=== PATIENT | female | born 1975 | race Hispanic/Latino ===

== ENCOUNTER 2018-06-27 17:27 | Emergency (ER) | payer SELFPAY ==
[2018-06-27] MEDS ORDERED: SODIUM CHLORIDE 0.9% 1000ML 2,000 ML IV ONE (19:16)
[2018-06-27 19:17] LABS: BASOPHILS % (AUTO) 0.3 % (0.0-5.0); EOSINOPHILS % (AUTO) 0.3 % (0.0-8.0); HEMATOCRIT 38.7 % (36-48); LYMPHOCYTES % (AUTO) 11.1 % (21.0-51.0); MEAN CORPUSCULAR HEMOGLOBIN 31.1 pg (27.0-33.0); MEAN CORPUSCULAR HGB CONC 34.2 g/dL (32.0-36.0); MONOCYTES % (AUTO) 8.2 % (3.0-13.0); NEUTROPHILS % (AUTO) 80.1 % (40.0-77.0); PLATELET COUNT (AUTO) 208 K/uL (130-400); RED BLOOD CELL COUNT(AUTO) 4.25 MIL/uL (4.00-5.50); RED CELL DISTRIBUTION WIDTH 13.8 % (11.0-15.5); WHITE BLOOD COUNT (AUTO) 11.2 K/uL (4.8-10.8)
[2018-06-27] MEDS ORDERED: ACETAMINOPHEN EXTRA STRENGTH 500 MG TABLET ONE (19:17)
[2018-06-27 19:31] LABS: POTASSIUM 3.2 mmol/L (3.5-5.1)
[2018-06-27 19:35] LABS: ALBUMIN 3.3 g/dL (3.5-5.0); BILIRUBIN,TOTAL 0.4 mg/dL (0.2-1.0); TOTAL PROTEIN, SERUM 9.3 g/dL (6.0-8.3)
== END 2018-06-27 20:32 | disposition home or self-care (01) ==
LOC: EDH 17:27
DX: J11.1 Influenza due to unidentified influenza virus with other respiratory manifestations (principal); Z21 Asymptomatic human immunodeficiency virus [HIV] infection status
CPT/HCPCS: 36415; 71046; 80053; 83605; 85025; 87040 ×2; 87804 ×2; 99284; J7030

== ENCOUNTER 2018-10-02 19:05 | Inpatient (IN) | payer OTHER | END 2018-10-07 17:20 | disposition home or self-care (01) | LOC: EDH 19:05 → EDHIP 10-03 00:50 → 3CH 10-03 23:30 → 3DH 10-03 08:27 | DX: A41.9 Sepsis, unspecified organism (principal); E87.1 Hypo-osmolality and hyponatremia; N17.9 Acute kidney failure, unspecified; E11.22 Type 2 diabetes mellitus with diabetic chronic kidney disease; R65.20 Severe sepsis without septic shock ==

== ENCOUNTER 2019-11-08 12:59 | Inpatient (IN) | payer OTHER ==
[~2019-11-08] VITALS: Ht 154.9 cm; Wt 79.1 kg
[~2019-11-08 12:59] MED LIST: CHOL500050 PO; DARU1TAB PO; DOCO1CAP PO; DOLU50TA PO
[2019-11-08 14:28] LABS: BASOPHILS % (AUTO) 0.2 % (0.0-5.0); EOSINOPHILS % (AUTO) 0.3 % (0.0-8.0); HEMATOCRIT 41.3 % (36-48); LYMPHOCYTES % (AUTO) 8.4 % (21.0-51.0); MEAN CORPUSCULAR HEMOGLOBIN 31.7 pg (27.0-33.0); MEAN CORPUSCULAR HGB CONC 33.9 g/dL (32.0-36.0); MEAN CORPUSCULAR VOLUME 93.4 fL (79-99); MONOCYTES % (AUTO) 5.8 % (3.0-13.0); PLATELET COUNT (AUTO) 189 K/uL (130-400); RED BLOOD CELL COUNT(AUTO) 4.42 MIL/uL (4.00-5.50); RED CELL DISTRIBUTION WIDTH 13.1 % (11.0-15.5); WHITE BLOOD COUNT (AUTO) 12.9 K/uL (4.8-10.8)
[2019-11-08 14:39] LABS: INR 1.01 (0.85-1.15); PARTIAL THROMBOPLASTIN TIME 25.9 SEC (26.3-35.5); PROTHROMBIN TIME 10.9 SEC (9.6-11.6)
[2019-11-08 14:45] LABS: CARBON DIOXIDE 26 mmol/L (21-32); CHLORIDE 101 mmol/L (101-111); CREATININE 0.9 mg/dL (0.5-1.5); GLOMERULAR FILTR. RATE CALC 72 mL/min (>60); GLUCOSE,RANDOM 113 mg/dL (70-105); POTASSIUM 3.1 mmol/L (3.5-5.1); SODIUM SERUM 138 mmol/L (136-145); UREA NITROGEN, BLOOD 9 mg/dL (7-18)
[2019-11-08 14:55] LABS: ALANINE AMINOTRANSFERASE 30 U/L (12-78); ALBUMIN 3.3 g/dL (3.5-5.0); ASPARTATE AMINOTRANSFERASE 43 U/L (10-37); BILIRUBIN,TOTAL 0.4 mg/dL (0.2-1.0); CREATINE KINASE, TOTAL 61 U/L (21-232); MYOGLOBIN 37 ng/mL (10-92); TOTAL PROTEIN, SERUM 8.5 g/dL (6.0-8.3); TROPONIN I < 0.04 ng/mL (0.00-0.06)
[2019-11-08] MEDS ORDERED: LEVOFLOXACIN 500 MG/D5W 100 ML 100 ML ONE (14:55)
[2019-11-08] MEDS ORDERED: ACETAMINOPHEN EXTRA STRENGTH 500 MG TABLET ONE ×2 (16:46→16:58)
[2019-11-08 17:16] LABS: CRP QUANTITATIVE 60.5 mg/L (0.00-9.0)
[2019-11-08] MEDS ORDERED: MORPHINE SULFATE 2 MG/ML 1ML SYG IV PRN (18:30)
[2019-11-08] MEDS ORDERED: LEVOFLOXACIN 500 MG/D5W 100 ML 100 ML IV SCH (18:30)
[2019-11-08] MEDS ORDERED: ACETAMINOPHEN 325 MG TAB PO PRN ×2 (18:30)
[2019-11-08] MEDS ORDERED: AZITHROMYCIN 500MG+NS 250ML 250 ML IV SCH (18:30)
[2019-11-08] MEDS ORDERED: ONDANSETRON HCL 4 MG/2 ML VIAL IV PRN (18:30)
[2019-11-08 18:50] VITALS: BP 105/77
[2019-11-08] MEDS ORDERED: IOHEXOL-350 75 ML VIAL IV ONE (19:33)
--- NOTE | 2019-11-08 19:40 | NUR ---
PT TAKEN FOR CT SCAN. DUE TO ELEVATED D-DIMER. CONSENT SIGNED.
[2019-11-08 19:44] VITALS: BP 106/73
[2019-11-08] MEDS ORDERED: **HM**(Cholecalciferol (Vitamin D3) (Vitamin D) 50,000 UNIT PO SCH (20:03)
[2019-11-08] MEDS: FAMOTIDINE/PF 20 MG/2 ML VIAL IV SCH (20:04)
[2019-11-08] MEDS: SODIUM CHLORIDE 0.9% 1000ML 1,000 ML IV SCH (20:04)
[2019-11-08] MEDS ORDERED: DARUNAVIR PO SCH (21:00)
[2019-11-08] MEDS ORDERED: COBICISTAT PO SCH (21:00)
[2019-11-08] MEDS ORDERED: DOLUTEGRAVIR SODIUM 50 MG PO SCH (21:00)
[2019-11-08] MEDS ORDERED: FISH OIL 1000 MG/CAP PO SCH (21:00)
[2019-11-08 23:59] VITALS: BP 113/84
--- NOTE | 2019-11-09 | NUR ---
PT HAS HAD SOME COUGH, NO PHLEGM. DOES NOT REQUIRED 02. ABLE TO AMBULATE WITHOUT ASSIST. PENDING UA. PT AWARE.
[2019-11-09 00:30] LABS: APPEARANCE,URINE Clear (CLEAR); BILIRUBIN,URINE Negative (NEGATIVE); COLOR,URINE Yellow (YELLOW); GLUCOSE, URINE (UA) Negative (NEGATIVE); KETONES,URINE Negative (NEGATIVE); LEUKOCYTE ESTERASE ,URINE Negative (NEGATIVE); NITRATE,URINE Negative (NEGATIVE); OCCULT BLOOD,URINE Negative (NEGATIVE); PROTEIN,URINE Trace mg/dL (NEGATIVE)
[2019-11-09 04:45] VITALS: BP 98/74
[2019-11-09 04:51] LABS: BASOPHILS % (AUTO) 0.4 % (0.0-5.0); EOSINOPHILS % (AUTO) 1.5 % (0.0-8.0); HEMATOCRIT 36.5 % (36-48); LYMPHOCYTES % (AUTO) 14.1 % (21.0-51.0); MEAN CORPUSCULAR HEMOGLOBIN 30.7 pg (27.0-33.0); MEAN CORPUSCULAR HGB CONC 32.9 g/dL (32.0-36.0); MEAN CORPUSCULAR VOLUME 93.4 fL (79-99); MONOCYTES % (AUTO) 8.9 % (3.0-13.0); NEUTROPHILS % (AUTO) 74.8 % (40.0-77.0); PLATELET COUNT (AUTO) 158 K/uL (130-400); RED BLOOD CELL COUNT(AUTO) 3.91 MIL/uL (4.00-5.50); RED CELL DISTRIBUTION WIDTH 13.1 % (11.0-15.5); WHITE BLOOD COUNT (AUTO) 7.4 K/uL (4.8-10.8)
[2019-11-09 05:21] LABS: ALBUMIN 2.7 g/dL (3.5-5.0); BILIRUBIN,TOTAL 0.3 mg/dL (0.2-1.0); CREATININE 0.8 mg/dL (0.5-1.5); POTASSIUM 3.6 mmol/L (3.5-5.1); TOTAL PROTEIN, SERUM 7.1 g/dL (6.0-8.3)
[2019-11-09] MEDS: FAMOTIDINE/PF 20 MG/2 ML VIAL IV SCH ×2 (08:13→20:11)
[2019-11-09] MEDS: SODIUM CHLORIDE 0.9% 1000ML 1,000 ML IV SCH (08:14)
[2019-11-09 08:20] VITALS: BP 110/78
[2019-11-09] MEDS ORDERED: ZOSYN 3.375GM+NS 50ML 50 ML IV SCH (12:00)
[2019-11-09 15:10] VITALS: BP 103/71
[2019-11-09] MEDS ORDERED: DARU1TAB3 PO (15:55)
[2019-11-09 16:57] LABS: AMPHET/METH SCREEN,URINE NEGATIVE (NEGATIVE); BARBITURATE SCREEN, URINE NEGATIVE (NEGATIVE); BENZODIAZEPINES SCREEN,URINE NEGATIVE (NEGATIVE); CANNABINOID SCREEN,URINE NEGATIVE (NEGATIVE); COCAINE SCREEN,URINE POSITIVE (NEGATIVE); OPIATE SCREEN,URINE NEGATIVE (NEGATIVE); PHENCYCLIDINE SCREEN,URINE NEGATIVE (NEGATIVE)
[2019-11-09 20:11] VITALS: BP 109/80
[2019-11-09] MEDS: [UNRECOGNIZED DRUG - OTHER] PO SCH (21:00)
[2019-11-09 23:57] VITALS: BP 120/85
[2019-11-10 03:39] VITALS: BP 121/83
[2019-11-10] MEDS: FAMOTIDINE/PF 20 MG/2 ML VIAL IV SCH ×2 (07:52→21:04)
[2019-11-10] MEDS: CEFTRIAXONE SODIUM 2 GM VIAL IVP SCH (07:52)
[2019-11-10 07:55] VITALS: BP 113/84
[2019-11-10 12:30] VITALS: BP 104/78
--- NOTE | 2019-11-10 14:39 | NUR ---
DR. Ru CASTREJON IN ROOM ASSESSING/SPEAKING WITH PT. RE:PLAN OF CARE. QUESTIONS ANSWERED BY DR. CASTREJON.
[2019-11-10 15:30] VITALS: BP 116/77
[2019-11-10 19:00] VITALS: BP 148/63
[2019-11-10] MEDS: [UNRECOGNIZED DRUG - OTHER] PO SCH (21:17)
[2019-11-10 23:00] VITALS: BP 121/83
[2019-11-11 03:00] VITALS: BP 137/82
[2019-11-11 06:03] LABS: BASOPHILS % (AUTO) 0.7 % (0.0-5.0); HEMATOCRIT 37.5 % (36-48); LYMPHOCYTES % (AUTO) 24.9 % (21.0-51.0); MEAN CORPUSCULAR HEMOGLOBIN 31.7 pg (27.0-33.0); MEAN CORPUSCULAR HGB CONC 34.1 g/dL (32.0-36.0); MEAN CORPUSCULAR VOLUME 92.8 fL (79-99); NEUTROPHILS % (AUTO) 60.5 % (40.0-77.0); PLATELET COUNT (AUTO) 186 K/uL (130-400); RED BLOOD CELL COUNT(AUTO) 4.04 MIL/uL (4.00-5.50); RED CELL DISTRIBUTION WIDTH 12.6 % (11.0-15.5); WHITE BLOOD COUNT (AUTO) 5.5 K/uL (4.8-10.8)
[2019-11-11 06:24] LABS: ALBUMIN 2.9 g/dL (3.5-5.0); BILIRUBIN,TOTAL 0.3 mg/dL (0.2-1.0); CREATININE 0.8 mg/dL (0.5-1.5); CRP QUANTITATIVE 22.6 mg/L (0.00-9.0); POTASSIUM 3.3 mmol/L (3.5-5.1); TOTAL PROTEIN, SERUM 7.5 g/dL (6.0-8.3)
[2019-11-11] MEDS: CEFTRIAXONE SODIUM 2 GM VIAL IVP SCH (07:49)
[2019-11-11] MEDS: FAMOTIDINE/PF 20 MG/2 ML VIAL IV SCH ×2 (07:49→19:47)
[2019-11-11 08:00] VITALS: BP 100/76
[2019-11-11] MEDS ORDERED: POTASSIUM CHLORIDE 20MEQ/100ML 100 ML IV PRN (11:30)
[2019-11-11] MEDS ORDERED: LIDOCAINE HCL-MPF 1% 2ML VIAL IV PRN (11:30)
--- NOTE | 2019-11-11 11:49 | NUR ---
CM NOTE spoke to pt states lives with spouse, independent with ambulation and adls. no dme. no services. states goes to [facility] (unable to recall name of clinic) [facility] jarret gamez that provides transport to md and meds. states no dc needs. states feels safe to return home at dc. no dc needs. Addendum: 11/11/19 at 1154 by ÁNGELA SYLVESTER CM Amended: Links added.
[2019-11-11 12:00] VITALS: BP 106/76
[2019-11-11] MEDS: POTASSIUM CHLORIDE 20 MEQ ERTAB PO PRN (13:10)
[2019-11-11] MEDS: POTASSIUM CHLORIDE 10% ELIXIR 20 MEQ/15 ML UDCUP PO PRN ×2 (17:27→19:48)
[2019-11-11 17:30] VITALS: BP 117/79
[2019-11-11] MEDS: [UNRECOGNIZED DRUG - OTHER] PO SCH (20:05)
[2019-11-11 20:33] VITALS: BP 112/86
[2019-11-12 00:24] VITALS: BP 113/74
[2019-11-12 03:52] VITALS: BP 106/77
[2019-11-12 06:12] LABS: BASOPHILS % (AUTO) 0.6 % (0.0-5.0); EOSINOPHILS % (AUTO) 4.1 % (0.0-8.0); HEMATOCRIT 38.6 % (36-48); LYMPHOCYTES % (AUTO) 25.4 % (21.0-51.0); MEAN CORPUSCULAR HEMOGLOBIN 30.8 pg (27.0-33.0); MEAN CORPUSCULAR HGB CONC 33.4 g/dL (32.0-36.0); MEAN CORPUSCULAR VOLUME 92.1 fL (79-99); MONOCYTES % (AUTO) 8.4 % (3.0-13.0); NEUTROPHILS % (AUTO) 60.3 % (40.0-77.0); PLATELET COUNT (AUTO) 198 K/uL (130-400); RED BLOOD CELL COUNT(AUTO) 4.19 MIL/uL (4.00-5.50); RED CELL DISTRIBUTION WIDTH 12.7 % (11.0-15.5); WHITE BLOOD COUNT (AUTO) 6.5 K/uL (4.8-10.8)
[2019-11-12 06:48] LABS: ALBUMIN 2.9 g/dL (3.5-5.0); BILIRUBIN,TOTAL 0.3 mg/dL (0.2-1.0); CREATININE 0.9 mg/dL (0.5-1.5); POTASSIUM 3.7 mmol/L (3.5-5.1); TOTAL PROTEIN, SERUM 7.7 g/dL (6.0-8.3)
[2019-11-12 08:17] VITALS: BP 104/75
[2019-11-12] MEDS: FAMOTIDINE/PF 20 MG/2 ML VIAL IV SCH (08:38)
[2019-11-12] MEDS: POTASSIUM CHLORIDE 20 MEQ ERTAB PO PRN ×2 (08:39→12:00)
[2019-11-12] MEDS: CEFTRIAXONE SODIUM 2 GM VIAL IVP SCH (08:39)
[2019-11-12 12:04] VITALS: BP 104/75
[2019-11-12 20:00] VITALS: BP 94/69
== END 2019-11-12 21:40 | disposition home or self-care (01) | DRG 975 ==
LOC: EDH 12:59 → EDHIP 13:00 → 2DH 18:34
PROVIDERS: ADMIT Internal Medicine; ATTEND Internal Medicine
DX: A41.9 Sepsis, unspecified organism (principal); B20 Human immunodeficiency virus [HIV] disease; J98.11 Atelectasis; J18.9 Pneumonia, unspecified organism; Z20.828 Contact with and (suspected) exposure to other viral communicable diseases; K52.9 Noninfective gastroenteritis and colitis, unspecified; E87.6 Hypokalemia; F14.90 Cocaine use, unspecified, uncomplicated; Z83.3 Family history of diabetes mellitus; Z98.891 History of uterine scar from previous surgery
CPT/HCPCS: 36415; 71045; 71250; 71275; 74176; 80053; 80305; 81003; 82550; 82728; 83605; 83615; 83874; 84145; 84484; 85025; 85378; 85610; 85730; 86140; 86359; 86361; 87040; 87088; 87633; 87635; 93005; G0378; J0456; J0696; J1956; J2543; J3490; J7030; Q9967

== ENCOUNTER 2022-11-15 21:16 | Emergency (ER) | payer OTHER ==
[~2022-11-15] VITALS: Ht 154.9 cm; Wt 75.3 kg
[~2022-11-15 21:16] MED LIST changes: -CHOL500050 PO; -DARU1TAB PO; +DARU1TAB3 PO; -DOCO1CAP PO; -DOLU50TA PO
[2022-11-15 23:13] LABS: BASOPHILS % (AUTO) 0.4 % (0.0-5.0); EOSINOPHILS % (AUTO) 0.5 % (0.0-8.0); HEMATOCRIT 41.1 % (36-48); LYMPHOCYTES % (AUTO) 13.1 % (21.0-51.0); MEAN CORPUSCULAR HEMOGLOBIN 31.2 pg (27.0-33.0); MEAN CORPUSCULAR HGB CONC 33.8 g/dL (32.0-36.0); MEAN CORPUSCULAR VOLUME 92.2 fL (79-99); MONOCYTES % (AUTO) 8.8 % (3.0-13.0); NEUTROPHILS % (AUTO) 76.7 % (40.0-77.0); RED BLOOD CELL COUNT(AUTO) 4.46 MIL/uL (4.00-5.50); WHITE BLOOD COUNT (AUTO) 7.7 K/uL (4.8-10.8)
[2022-11-15 23:25] LABS: CREATININE 0.8 mg/dL (0.5-1.5); POTASSIUM 3.6 mmol/L (3.5-5.1)
[2022-11-15 23:26] LABS: BILIRUBIN,URINE NEGATIVE (NEGATIVE); COLOR,URINE YELLOW (YELLOW); GLUCOSE, URINE (UA) NEGATIVE (NEGATIVE); KETONES,URINE NEGATIVE (NEGATIVE); LEUKOCYTE ESTERASE ,URINE 500 Leu/uL (NEGATIVE); NITRATE,URINE 1+ (NEGATIVE); OCCULT BLOOD,URINE SMALL (NEGATIVE); PH,URINE 6.5 (5.0-8.0); PROTEIN,URINE 20 mg/dL (NEGATIVE); UROBILINOGEN,URINE 12 mg/dL (0.2-1.0)
[2022-11-15 23:29] LABS: ALBUMIN 3.2 g/dL (3.5-5.0); TOTAL PROTEIN, SERUM 9.4 g/dL (6.0-8.3)
[2022-11-15] MEDS ORDERED: 0.9%NACL 1000ML 1,000 ML IV ONE (23:30)
[2022-11-15 23:33] LABS: APPEARANCE,URINE CLOUDY (CLEAR)
[2022-11-15 23:38] LABS: BACTERIA,URINE MANY /HPF (None Seen); MUCUS,URINE FEW LPF (None Seen); SQUAMOUS EPITHELIAL CELL,UR MANY /HPF (0-2); WBC,URINE TNTC /HPF (0-1)
[2022-11-15 23:47] LABS: PLATELET COUNT (AUTO) 120 K/uL (130-400)
[2022-11-16 00:49] VITALS: BP 112/84
[2022-11-16] MEDS ORDERED: IBUP-1493 PO (01:06)
[2022-11-16] MEDS ORDERED: CYCL-309 PO (01:06)
[2022-11-16] MEDS ORDERED: CEFTRIAXONE 1G VIAL ONE (01:26)
[2022-11-16] MEDS ORDERED: CEFU500T67 PO (01:27)
[2022-11-16] MEDS ORDERED: ONDA-104 PO (01:27)
[2022-11-16] MEDS ORDERED: CEFTRIAXONE 1G VIAL IVPB ONE (01:30)
== END 2022-11-16 02:09 | disposition home or self-care (01) ==
LOC: EDH 21:16
DX: M54.50 Low back pain, unspecified (principal); R11.2 Nausea with vomiting, unspecified
CPT/HCPCS: 99284; 96360; 84484; 80053; 83690; 85025; 87040 ×2; 87077; 87088; 87186; 83605; 81001; 81025; 36415; 93005; 76705; J7030; J0696

== ENCOUNTER 2024-09-05 18:42 | Inpatient (IN) | payer SELFPAY ==
[~2024-09-05] VITALS: Ht 157.5 cm; Wt 66.7 kg
[~2024-09-05 18:42] MED LIST changes: +CEFU500T67 PO; +IBUP-1493 PO; +ONDA-104 PO
[2024-09-05 19:33] LABS: HEMATOCRIT 37.7 % (36-48); MEAN CORPUSCULAR HEMOGLOBIN 31.8 pg (27.0-33.0); MEAN CORPUSCULAR VOLUME 93.5 fL (79-99); PLATELET COUNT (AUTO) 69 K/uL (130-400); RED BLOOD CELL COUNT(AUTO) 4.03 MIL/uL (4.00-5.50); RED CELL DISTRIBUTION WIDTH 15.6 % (11.0-15.5); WHITE BLOOD COUNT (AUTO) 3.8 K/uL (4.8-10.8)
[2024-09-05 19:43] LABS: CREATININE 0.8 mg/dL (0.5-1.0); POTASSIUM 3.6 mmol/L (3.5-5.1)
[2024-09-05 19:48] LABS: ALBUMIN 2.8 g/dL (3.5-5.0); BILIRUBIN,TOTAL 1.2 mg/dL (0.2-1.0); TOTAL PROTEIN, SERUM 8.3 g/dL (6.0-8.3)
--- NOTE | 2024-09-05 20:35 | EKG ---
[facility] Test Date: 2024-09-05 Test Time: 20:33:34 Pat Name: RL MITCHELL Department: ED Room: 313 Gender: F [employer]: [id number] : 1975 Requested By: SUNITHA SKINNER Order Number: [id number] Reading MD: Anthony King Measurements Intervals [place] Rate: 70 P: 48 IA: 118 QRS: 28 QRSD: 71 T: 55 QT: 414 QTc: 449 Interpretive Statements Sinus rhythm Probable left atrial enlargement Nonspecific STT abnormality Compared to ECG 11/15/2022 23:12:50 Sinus tachycardia no longer present Electronically Signed On 09-09-2024 18:23:38 CDT by Anthony King Please click the below link to view image of tracing.
[2024-09-05] MEDS: HYDROcodone/APAP 5/325 1 TAB TABLET PO ONE (23:03)
[2024-09-05] MEDS: IpraTROPium/alBUTERol SULFATE 3 ML SOLUTION IH ONE (23:38)
[2024-09-05 23:39] VITALS: PULSE 88; RESP 22
--- NOTE | 2024-09-05 23:40 | ERN ---
General Chief Complaint: Abnormal Labs Stated Complaint: ABNORMAL LABS Time Seen by MD: 18:45 Time Seen by Midlevel: 18:45 Source: patient History of Present Illness Initial Comments Patient is a 48-year-old female with a past medical history of HIV presenting to the emergency department for evaluation of abnormal labs. She was told by her primary care doctor to report to the emergency department for possible platelet transfusion. She states that she had her her blood drawn several days ago and her results revealed a low platelet count. The patient is unsure what her hemoglobin level was. She states that for the last couple of days she has been having an increase in headache and shortness of breath on exertion. She also reports developing chest pain that has progressively worsened throughout the day. Allergies: Coded Allergies: No Known Drug Allergies (Unverified Allergy, Unknown, 09/05/24) Uncoded Allergies: NKA (Allergy, Unknown, 10/06/18) Home Meds Active Scripts Cefuroxime Axetil (Cefuroxime) 500 Mg Tablet, 500 MG PO BID, #20 TAB Prov:MARIJA CARDONA MD 11/16/22 Ondansetron HCl (Ondansetron HCl) 4 Mg Tablet, 4 MG PO TIDP PRN for VOMITING, #20 TAB Prov:MARIJA CARDONA MD 11/16/22 Ibuprofen (Motrin/Advil) 800 Mg Tab, 800 MG PO TID, #30 TAB Prov:MARIJA CARDONA MD 11/16/22 Reported Medications Darunavir/Cob/Emtri/Tenof Alaf (Symtuza [id number] mg Tab) 1 Each Tablet, 1 EACH PO HS, TAB 11/09/19 Past Medical History Past Medical History: No Pertinent History, HIV Past Surgical History: None Family History Family History: HTN Social History Social History: Negative, Lives with family ROS Dictation CONSTITUTIONAL: Negative except for HPI HEAD/FACE: Negative except for HPI EENT: Negative except for HPI RESPIRATORY: Negative except for HPI GASTROINTESTINAL/ABDOMINAL: Negative except for HPI GENITOURINARY: Negative except for HPI MUSCULOSKELETAL: Negative except for HPI INTEGUMENTARY: Negative except for HPI NEUROLOGICAL/PSYCH: Negative except for HPI HEMATOLOGIC/LYMPHATIC: Negative except for HPI All Systems Negative, Except as noted above. 13 point review of systems assessed and all negative except for above. Physical Exam Physical Exam Dictation Vital Signs reviewed General Appearance: Alert, oriented x 3, no acute distress, well developed, nourished. Head and Face: non-traumatic. Eyes: PERRL, pink conjunctivas, eyelid no trauma, anterior chamber with arcus senilis. Ears: Pinnas intact and no signs of trauma or erythema ear canals clear and no discharge TM no erythema Nose: No discharge, no bleeding. Oropharynx: Mouth normal, tongue pink, pharynx clear,no erythema, tonsils no exudates, no abscesses noted, mucous membrane moist Neck: Supple, non-tender, no thyromegaly, no masses, no JVD, no bruits Breast:Deferred Chest:No tenderness, no crepitus, no paradoxical movement, no retractions Lungs:Clear, well-ventilated, symmetric, no rales, no wheezing, no rhonchi, no stridor, good breath sounds bilaterally Heart: Regular rate, regular rhythm, no murmur, no gallops Vascular: no peripheral edema, Abdomen: Soft, positive bowel sounds, nondistended, no guarding, nontender, no rebound, no masses no hepatomegaly, no splenomegaly, no Bess's sign, no hernias. Rectal: Deferred Genital: Deferred Neurological: Normal speech, motor function intact, sensory function intact Musculoskeletal: Neck nontender, full range of motion, back nontender, full range of motion, Extremities: nontender, full range of motion Skin: Color pink, dry, no turgor, no rash, no lacerations, no abrasions, no contusions. Lymphatic: Deferred Results Laboratory and Microbiology Lab and Micro Result Laboratory Tests Test 09/05/24 19:23 White Blood Count 3.8 K/uL (4.8-10.8) L Red Blood Count 4.03 MIL/uL (4.00-5.50) Hemoglobin 12.8 g/dL (12.0-16.0) Hematocrit 37.7 % (36-48) Mean Corpuscular Volume 93.5 fL (79-99) Mean Corpuscular Hemoglobin 31.8 pg (27.0-33.0) Mean Corpuscular Hemoglobin Concent 34.0 g/dL (32.0-36.0) Red Cell Distribution Width 15.6 % (11.0-15.5) H Platelet Count 69 K/uL (130-400) L Mean Platelet Volume 9.9 fL (7.5-10.5) Nucleated Red Blood Cells 0.0 % (0.0-0.19) Platelet Morphology Comment See comments Sodium Level 139 mmol/L (136-145) Potassium Level 3.6 mmol/L (3.5-5.1) Chloride Level 105 mmol/L (101-111) Carbon Dioxide Level 31 mmol/L (21-32) Blood Urea Nitrogen 9 mg/dL (7-18) Creatinine 0.8 mg/dL (0.5-1.0) Glomerular Filtration Rate Calc 90 mL/min (>90) Random Glucose 94 mg/dL (70-105) Total Calcium 8.7 mg/dL (8.5-10.1) Total Bilirubin 1.2 mg/dL (0.2-1.0) H Aspartate Amino Transf (AST/SGOT) 47 U/L (10-37) H Alanine Aminotransferase (ALT/SGPT) 24 U/L (12-78) Alkaline Phosphatase 145 U/L (50-136) H Total Creatine Kinase 111 U/L (21-232) # Troponin I High Sensitivity 5 ng/L (4-50) B-Type Natriuretic Peptide 43 pg/mL (0-100) Total Protein 8.3 g/dL (6.0-8.3) Albumin 2.8 g/dL (3.5-5.0) L Labs Reviewed?: Yes MDM MDM: Differential diagnosis: ACS, dehydration, electrolyte abnormality, pneumonia, acute bronchitis Rationale: Tests considered and ordered secondary to shared decision making include: Previous outside records reviewed: Old ER visits. Risk of complication and/or morbidity or mortality of patient management: None Medications-Per medication reconciliation Need for hospitalization: Patient does meet criteria for hospitalization. Need for emergency major/minor surgery: No There are no social concerns with this patient. Prescription drug management Prescriptions will include symptomatic care Patient's prior external medical records from other ER visits were reviewed by me as indicated. Prior testing and results from previous visits were reviewed. Prior tests were taken into account with medical decision making and resource utilization, independent historian/historians were used to obtain complete medical history. I independently interpreted the test that were performed, results were reviewed by me and considered findings on radiology if ordered. Medical management and examination interpretation discussions were had by me with other qualified healthcare professionals as indicated for the patient's care. ED Course Orders Procedure Category Date Status Time Cbc Without LAB 09/05/24 Complete Differential 18:48 Comprehensive LAB 09/05/24 Complete Metabolic Panel 18:48 Type And Screen BBK 09/05/24 Complete 18:48 12 Lead Ekg Tracing- EKG 09/05/24 Complete Technical 20:21 Troponin I High LAB 09/05/24 Complete Sensitivity 20:21 Urinalysis Profile LAB 09/05/24 Logged 20:21 Creatine Kinase, Total LAB 09/05/24 Complete 20:21 B-Type Natriuretic LAB 09/05/24 Complete Peptide 20:32 Ipratropium/Albuterol PHA 09/05/24 Complete Neb (Duoneb) 23:00 Chest 1vw RAD 09/05/24 Taken 22:34 Hydrocodone/Apap PHA 09/05/24 Complete 5/325 ([place] 5/325mg) 23:00 Current Medications Medications (Trade) Dose Ordered Sig/Breanna Route PRN Reason Start Time Stop Time Status Last Admin Dose Admin Acetaminophen/ Hydrocodone Bitart (NORco 5/325MG) 1 tab ONCE ONCE PO 09/05/24 23:00 09/05/24 23:01 DC 09/05/24 23:03 Albuterol (DUOneb) 1 UDVIAL ONCE ONCE IH 09/05/24 23:00 09/05/24 23:01 DC 09/05/24 23:38 Vital Signs Date Time Temp Pulse Resp B/P (MAP) Pulse Ox O2 Delivery O2 Flow Rate FiO2 09/05/24 23:39 88 22 09/05/24 18:44 98.1 95 16 131/76 99 Room Air HEART Score Response (Comments) Value History: Moderate suspicion (+1) 1 EKG: Normal 0 Age: 45-65yrs (+1) 1 Risk Factors: 1-2 risk factors (+1) 1 Initial Troponin: Normal limit (0) 0 Total 3 DX & DISP Disposition: Inpatient Decision to Admit Date: Sep 06, 2024 Departure Impression: Primary Impression: Chest pain Additional Impressions: History of HIV infection, Leukopenia, Thrombocytopenia Condition: Stable Referrals: SELF,REFERRAL (PCP) I have reviewed the case, and I agree with, Diagnosis and Plan I performed the substantive portion of the visit. I have reviewed and personally made and approve the management plan that is documented in the note by myself or the LORENA. I acknowledge for responsibility for the patient's management plan. SUNITHA SKINNER Sep 05, 2024 23:40
--- NOTE | 2024-09-05 23:52 | HP ---
[facility] Date of Service: Sep 05, 2024 Time of Service: 23:52 PCP: Nadia Lawson HISTORY OF PRESENT ILLNESS: This is a 48-year-old female Italian-speaking with past medical history of HIV who presents to the ED for complaints of shortness of breaths, chest pain and chest congestion and as per patient she was told by her PCP before if ever she has this symptoms to come to the ED for evaluation. Patient reports that she had lab result and her platelet count was low. Patient states she was seen by her PCP Nadia Lawson three weeks ago. Patient also reports she has fever and abdominal pain. Patient also states she does not have appetite for the past three days. Patient states he has not been seen by a internal controls consultant . Patient r eports she received platelet transfusion before. Seen and examined patient in the ER, awake, alert, coherent and appears uncomfo rtable. Patient denies nausea, vomiting and diarrhea. Vital signs temperature 98.1, heart rate 88, respiration 22 blood pressure 131/76 saturation 99% on room air. Labs: WBC 3.8, hemoglobin 12.8, hematocrit 37.7 platelet count 69. Total bilirubin 1.2, AST 47, alkaline phosphatase 145 total CK 111 troponin five BNP 43 albumin 2.8. ECG result revealed sinus rhythm heart rate 70 with probable left atrial enlargement. Chest x-ray result is still pending at this time. While in the ER patient received albuterol neb treatment and Lehr 5/325 mg one tab. ER called and recommended to admit the patient. REVIEW OF SYSTEMS CONSTITUTIONAL: Complaints of fever Denies chills, or night sweats. No unintentional weight loss reported. NEUROLOGICAL: Denies headache, amaurosis fugax, motor weakness, sensory deficit, vertigo/spinning sensation, gait abnormalities, or tremors. ENT: No hearing loss, otalgia, otorrhea, rhinitis, rhinorrhea, hoarseness, or sore throat. CARDIOVASCULAR: Complain of chest pain Denies dyspnea on exertion, orthopnea, paroxysmal nocturnal dyspnea, palpitations, life-threatening arrhythmias, claudication. PULMONARY: Complaints of shortness of breaths and productive cough Denies hemoptysis, pleuritic chest pain. SLEEP: Denies morning headaches, daytime somnolence or napping. Denies difficulty falling asleep, staying asleep, waking from sleep. Denies knowledge of snoring. GASTROINTESTINAL: Complains of abdominal pain Denies any type of dysphagia to either liquids or solids. Denies nausea, vomiting, pyrosis, early satiety, diarrhea, constipation, or changes in stool consistency or caliber. Denies coffee-ground emesis, hematemesis, hematochezia, or melanotic stools. GENITOURINARY: Denies frequency, urgency, nocturia, hematuria or incontinence (Storage/Irritative symptoms.) Low urinary stream, straining to void, urinary intermittency or hesitancy, splitting of the voiding stream, terminal dribbling. ENDOCRINOLOGIC: Denies polyuria, polydipsia, polyphagia or heat/cold intolerances. HEMATOLOGIC: Denies thrombophilia/previous clots, or coagulopathy/bleeding disorders. ONCOLOGIC: Denies personal history of malignancy. DERMATOLOGIC: Denies rashes or pruritus. PSYCHIATRIC: Denies any suicidal or homicidal ideation. Denies hallucinations. PAST MEDICAL HISTORY: [HIV ] PAST SURGICAL HISTORY: [ x2 ] PAST SOCIAL HISTORY: [ Patient denies alcohol tobacco and recreational drug use ] FAMILY HISTORY: [ Father diabetes ] Coded Allergies: No Known Drug Allergies (Unverified Allergy, Unknown, 09/05/24) Uncoded Allergies: NKA (Allergy, Unknown, 10/06/18) PHYSICAL EXAM GENERAL APPEARANCE: The patient is awake, alert, and oriented, in no acute cardiopulmonary distress. NEUROLOGICAL: Cranial nerves II-XII grossly intact. Motor is 5/5 in bilateral upper and lower extremities proximal to distal. No sensory deficits. HEENT: Face is symmetric. Pupils are equal and reactive. Extraocular movements are intact. NECK: Supple. No JVD. No thyromegaly. No submental, submandibular, pre- /postauricular, occipital or supraclavicular lymphadenopathy. CHEST: Normal chest expansion. No Telemetry. LUNGS: Absence of any rales, rhonchi or any wheezing. CARDIOVASCULAR: Regular. S1 and S2 normal. No appreciable rubs, murmurs or gallops. ABDOMEN: Diffuse abdominal tenderness on palpation. Soft and nondistended. There is no rebound, voluntary guarding, or rigidity. : Deferred. No Fernandez. EXTREMITIES: Non-edematous and not cyanotic. No clubbing. Good capillary refill. SKIN: No skin breakdown. Vital Sign (Last 24 Hours) 09/05/24 09/05/24 18:44 23:39 Temp 98.1 Pulse 88 Resp 22 B/P (MAP) 131/76 Pulse Ox 99 O2 Delivery Room Air LABS: Laboratory: Test 09/05/24 19:23 Range/Units White Blood Count 3.8 L 4.8-10.8 K/uL Red Blood Count 4.03 4.00-5.50 MIL/uL Hemoglobin 12.8 12.0-16.0 g/dL Hematocrit 37.7 36-48 % Mean Corpuscular Volume 93.5 79-99 fL Mean Corpuscular Hemoglobin 31.8 27.0-33.0 pg Mean Corpuscular Hemoglobin Concent 34.0 32.0-36.0 g/dL Red Cell Distribution Width 15.6 H 11.0-15.5 % Platelet Count 69 L 130-400 K/uL Mean Platelet Volume 9.9 7.5-10.5 fL Nucleated Red Blood Cells 0.0 0.0-0.19 % Platelet Morphology Comment See comments Sodium Level 139 136-145 mmol/L Potassium Level 3.6 3.5-5.1 mmol/L Chloride Level 105 101-111 mmol/L Carbon Dioxide Level 31 21-32 mmol/L Blood Urea Nitrogen 9 7-18 mg/dL Creatinine 0.8 0.5-1.0 mg/dL Glomerular Filtration Rate Calc 90 >90 mL/min Random Glucose 94 70-105 mg/dL Total Calcium 8.7 8.5-10.1 mg/dL Total Bilirubin 1.2 H 0.2-1.0 mg/dL Aspartate Amino Transf (AST/SGOT) 47 H 10-37 U/L Alanine Aminotransferase (ALT/SGPT) 24 12-78 U/L Alkaline Phosphatase 145 H 50-136 U/L Total Creatine Kinase 111 # 21-232 U/L Troponin I High Sensitivity 5 4-50 ng/L B-Type Natriuretic Peptide 43 0-100 pg/mL Total Protein 8.3 6.0-8.3 g/dL Albumin 2.8 L 3.5-5.0 g/dL DIAGNOSTICS / RADIOLOGY: [ ] ASSESSMENT: Unspecified chest pain POA Leukopenia POA Thrombocytopenia POA Hyperbilirubinemia POA Protein calorie malnutrition POA History of HIV POA PLAN: We will admit patient in medical telemetry We will start on heart healthy diet We will start NS @ 75 ml / hr x2 bags and re evaluate We will start on Famotidine 20 mg IV bid for GI prophylaxis We will replace electrolytes as needed per protocol May use oxygen supplementation to keep saturation above 92% Albuterol neb treatment q.6 hours p.r.n. for shortness of breaths and cough We will add prn medication for fever,pain,cough , nausea and vomiting We will reconcile home meds once medlist available We will seek Hematology consultation We will seek dietary consultation to assess malnutrition We will trend troponin q.6 x3 We will request labs in am Further orders to follow depending on above results Case discussed with attending physician and came up with above treatment and plan of care. ADVANCED CARE PLANNING 1. Which of the following were discussed? Hospice Care - No Therapeutic options - Yes Advance Directives - No Other discussions - 2. Discussed with who? Patient 3. Voluntary nature of this service was explained to the patient? Yes 4. Amount of time spent - __20 5. Reviewed by Physician? (if this service was performed by NPP) Yes Patient seen and examined by me. Agree with note by AIR TRAFFIC SYSTEMS TECHNICIAN SEE ADDITIONAL ORDERS PER CHART DISCUSSED WITH NURSING STAFF UBALDO AARON [employer]ESS OPERATOR Sep 05, 2024 23:52
[2024-09-06] MEDS ORDERED: ondanSETRON 4MG INJ IV PRN (02:00)
[2024-09-06] MEDS ORDERED: acetaMINOPHEN 325 MG TAB PO PRN (02:00)
[2024-09-06] MEDS ORDERED: NITROGLYCERIN 0.4 MG SL TAB SL PRN (02:00)
[2024-09-06] MEDS: acetaMINOPHEN 325 MG TAB PO PRN (02:20)
[2024-09-06 02:29] VITALS: RESP 20; O2SAT 99
[2024-09-06] MEDS ORDERED: traMADol HCL 50 MG TABLET PO PRN (02:30)
[2024-09-06 02:42] LABS: BASOPHILS # (AUTO) 0.01 K/uL (0.00-0.20); BASOPHILS % (AUTO) 0.3 % (0.0-5.0); EOSINOPHILS # (AUTO) 0.11 K/uL (0.00-0.70); EOSINOPHILS % (AUTO) 3.8 % (0.0-8.0); HEMATOCRIT 34.6 % (36-48); IMMATURE GRANULOCYTE ABSOLUTE 0.01 K/uL (0-1); LYMPHOCYTES # (AUTO) 0.6 K/uL (1.0-4.8); LYMPHOCYTES % (AUTO) 21.7 % (21.0-51.0); MEAN CORPUSCULAR HEMOGLOBIN 31.5 pg (27.0-33.0); MEAN CORPUSCULAR HGB CONC 34.1 g/dL (32.0-36.0); MEAN CORPUSCULAR VOLUME 92.3 fL (79-99); MONOCYTES # (AUTO) 0.3 K/uL (0.1-1.0); MONOCYTES % (AUTO) 9.3 % (3.0-13.0); NEUTROPHILS # (AUTO) 1.9 K/uL (1.8-7.7); NEUTROPHILS % (AUTO) 64.6 % (40.0-77.0); PLATELET COUNT (AUTO) 52 K/uL (130-400); RED BLOOD CELL COUNT(AUTO) 3.75 MIL/uL (4.00-5.50); RED CELL DISTRIBUTION WIDTH 15.7 % (11.0-15.5); WHITE BLOOD COUNT (AUTO) 2.9 K/uL (4.8-10.8)
[2024-09-06 03:01] LABS: ALBUMIN 2.6 g/dL (3.5-5.0); CREATININE 0.7 mg/dL (0.5-1.0); MAGNESIUM 1.8 mg/dL (1.80-2.40); POTASSIUM 3.3 mmol/L (3.5-5.1); TOTAL PROTEIN, SERUM 7.5 g/dL (6.0-8.3)
[2024-09-06] MEDS: 0.9%NACL 1000ML 1,000 ML IV SCH (03:34)
[2024-09-06 03:36] LABS: LYMPHOCYTES % (MANUAL) 19 % (22-44); MAN.DIFF COMMENT-IMPRESSION MANUAL DIFFERENTIAL; MONOCYTES % (MANUAL) 7 % (2-9); SEGMENTED NEUTROPHILS % 74 % (40-70); TOTAL CELLS COUNTED 100
[2024-09-06 03:37] LABS: PLATELET MORPHOLOGY COMMENT DECREASED; WBC MORPHOLOGY SMUDGE CELLS 1+
[2024-09-06 04:08] LABS: ERYTHROCYTE SEDIMENTATION RATE 53 MM/HR (0-30)
[2024-09-06] MEDS ORDERED: PoTASSium chl 10% ELIXIR 20MEQ 20 MEQ/15 ML UDCUP PO PRN ×2 (06:00→09:00)
[2024-09-06] MEDS ORDERED: PoTASSium chloRIDE 20MEQ/100ML 100 ML IV PRN ×3 (06:00→09:00)
[2024-09-06 06:02] VITALS: BP 97/73; PULSE 74; RESP 16; TEMP 97.7
[2024-09-06] MEDS: MAGNESIUM 2GM PREMIX 50ML 50 ML IV PRN (06:07)
[2024-09-06] MEDS: PoTASSium chloRIDE 20MEQ ER 20 MEQ ERTAB PO PRN (06:08)
[2024-09-06 06:18] VITALS: O2SAT 99
[2024-09-06] MEDS ORDERED: DOLU50TA PO (06:18)
[2024-09-06 06:54] VITALS: PULSE 62; RESP 18; O2SAT 97
[2024-09-06] MEDS: FAMOTIDINE 20MG VIAL IV SCH (08:26)
--- NOTE | 2024-09-06 08:28 | HMCIMG ---
Exam Type: CHEST 1VW Clinical Information: sob Comparison: None Findings: The lungs are clear of infiltrates. The heart is normal in size. The bony and soft tissue structures of the chest are unremarkable. Impression: Clear lungs.
--- NOTE | 2024-09-06 08:53 | PN ---
[facility] PROGRESS NOTE Date of Service: Sep 06, 2024 Time of Service: 08:39 SUBJECTIVE: [ ] Petechial female with a past medical history of HIV and hypotension admitted for chest pain, electrolyte derangement, leukopenia, thrombocytopenia, hyperbilirubinemia and severe protein calorie malnutrition. Senior Group Manager Dr. Pop was consulted secondary to leukopenia, thrombocytopenia and HIV diagnosis. Serial troponins ordered to rule out ACS. Chest x-ray showed clear lungs. 09/06/2024: Today at bedside evaluation patient is alert and oriented x3. Patient reports still feeling weak, she was having some appetite and we will attempt to eat her breakfast. Reports no nausea. Overnight there is no reported incidences. Her latest vital signs are stable, afebrile, blood pressure 101/59, satting 97% on room air. CBC this morning is 2.9, H&H 11.8/34.6, platelets 52, ESR 53, potassium is 3.3, magnesium 1.8, alkaline phosphatase 154, series troponins are negative, albumin 2.6. Chest x-ray shows no acute findings. We will continue with IV fluids with NS at 75 mL/hr. Home medications reviewed and restarted. Condition remains guarded. We will follow up with rn internal medicine recommendations. REVIEW OF SYSTEMS CONSTITUTIONAL: Complaints of fever Denies chills, or night sweats. No unintentional weight loss reported. NEUROLOGICAL: Denies headache, amaurosis fugax, motor weakness, sensory deficit, vertigo/spinning sensation, gait abnormalities, or tremors. ENT: No hearing loss, otalgia, otorrhea, rhinitis, rhinorrhea, hoarseness, or sore throat. CARDIOVASCULAR: Complain of chest pain Denies dyspnea on exertion, orthopnea, paroxysmal nocturnal dyspnea, palpitations, life-threatening arrhythmias, claudication. PULMONARY: Complaints of shortness of breaths and productive cough Denies hemoptysis, pleuritic chest pain. SLEEP: Denies morning headaches, daytime somnolence or napping. Denies difficulty falling asleep, staying asleep, waking from sleep. Denies knowledge of snoring. GASTROINTESTINAL: Complains of abdominal pain Denies any type of dysphagia to either liquids or solids. Denies nausea, vomiting, pyrosis, early satiety, diarrhea, constipation, or changes in stool consistency or caliber. Denies coff ee-ground emesis, hematemesis, hematochezia, or melanotic stools. GENITOURINARY: Denies frequency, urgency, nocturia, hematuria or incontinence (Storage/Irritative symptoms.) Low urinary stream, straining to void, urinary intermittency or hesitancy, splitting of the voiding stream, terminal dribbling. ENDOCRINOLOGIC: Denies polyuria, polydipsia, polyphagia or heat/cold intolerances. HEMATOLOGIC: Denies thrombophilia/previous clots, or coagulopathy/bleeding disorders. ONCOLOGIC: Denies personal history of malignancy. DERMATOLOGIC: Denies rashes or pruritus. PSYCHIATRIC: Denies any suicidal or homicidal ideation. Denies hallucinations. PHYSICAL EXAM GENERAL APPEARANCE: The patient is awake, alert, and oriented, in no acute cardiopulmonary distress. NEUROLOGICAL: Cranial nerves II-XII grossly intact. Motor is 5/5 in bilateral upper and lower extremities proximal to distal. No sensory deficits. HEENT: Face is symmetric. Pupils are equal and reactive. Extraocular movements are intact. NECK: Supple. No JVD. No thyromegaly. No submental, submandibular, pre- /postauricular, occipital or supraclavicular lymphadenopathy. CHEST: Normal chest expansion. No Telemetry. LUNGS: Absence of any rales, rhonchi or any wheezing. CARDIOVASCULAR: Regular. S1 and S2 normal. No appreciable rubs, murmurs or gallops. ABDOMEN: Diffuse abdominal tenderness on palpation. Soft and nondistended. There is no rebound, voluntary guarding, or rigidity. : Deferred. No Fernandez. EXTREMITIES: Non-edematous and not cyanotic. No clubbing. Good capillary refill. SKIN: No skin breakdown. Vital Signs (last 8hr) Date Time Temp Pulse Resp B/P (MAP) Pulse Ox O2 Delivery O2 Flow Rate FiO2 09/06/24 07:22 97.9 70 16 101/59 97 Room Air* 0 09/06/24 06:54 62 18 N/A Room Air 09/06/24 06:18 99 Room Air* 0 09/06/24 06:02 97.7 74 16 97/73 99 Room Air 09/06/24 02:29 20 N/A Room Air 09/06/24 02:25 98.1 72 18 100/66 99 Room Air* 0 21 LABS: Laboratory: Test 09/06/24 02:21 09/05/24 19:23 Range/Units White Blood Count 2.9 L 4.8-10.8 K/uL Red Blood Count 3.75 L 4.00-5.50 MIL/uL Hemoglobin 11.8 L 12.0-16.0 g/dL Hematocrit 34.6 L 36-48 % Mean Corpuscular Volume 92.3 79-99 fL Mean Corpuscular Hemoglobin 31.5 27.0-33.0 pg Mean Corpuscular Hemoglobin Concent 34.1 32.0-36.0 g/dL Red Cell Distribution Width 15.7 H 11.0-15.5 % Platelet Count 52 L 130-400 K/uL Mean Platelet Volume 10.8 H 7.5-10.5 fL Immature Granulocyte % (Auto) 0.3 0-1 % Neutrophils (%) (Auto) 64.6 40.0-77.0 % Lymphocytes (%) (Auto) 21.7 21.0-51.0 % Monocytes (%) (Auto) 9.3 3.0-13.0 % Eosinophils (%) (Auto) 3.8 0.0-8.0 % Basophils (%) (Auto) 0.3 0.0-5.0 % Neutrophils # (Auto) 1.9 1.8-7.7 K/uL Lymphocytes # (Auto) 0.6 L 1.0-4.8 K/uL Monocytes # (Auto) 0.3 0.1-1.0 K/uL Eosinophils # (Auto) 0.11 0.00-0.70 K/uL Basophils # (Auto) 0.01 0.00-0.20 K/uL Absolute Immature Granulocyte (auto 0.01 0-1 K/uL Segmented Neutrophils % 74 H 40-70 % Lymphocytes % (Manual) 19 L 22-44 % Monocytes % (Manual) 7 2-9 % Nucleated Red Blood Cells 0.0 0.0-0.19 % Differential Comment MANUAL DIFFERENTIAL White Cell Morphology Comment SMUDGE CELLS 1+ Platelet Morphology Comment DECREASED Red Blood Cell Morphology See comments Erythrocyte Sedimentation Rate 53 H 0-30 MM/HR Sodium Level 141 136-145 mmol/L Potassium Level 3.3 L 3.5-5.1 mmol/L Chloride Level 109 101-111 mmol/L Carbon Dioxide Level 26 21-32 mmol/L Blood Urea Nitrogen 9 7-18 mg/dL Creatinine 0.7 0.5-1.0 mg/dL Glomerular Filtration Rate Calc 105 >90 mL/min Random Glucose 103 70-105 mg/dL Total Calcium 8.0 L 8.5-10.1 mg/dL Magnesium Level 1.80 1.80-2.40 mg/dL Total Bilirubin 1.0 0.2-1.0 mg/dL Aspartate Amino Transf (AST/SGOT) 40 H 10-37 U/L Alanine Aminotransferase (ALT/SGPT) 22 12-78 U/L Alkaline Phosphatase 154 H 50-136 U/L Troponin I High Sensitivity 6 4-50 ng/L Total Protein 7.5 6.0-8.3 g/dL Albumin 2.6 L 3.5-5.0 g/dL Procalcitonin < 0.05 L 0.05-0.5 ng/mL Total Creatine Kinase 111 # 21-232 U/L B-Type Natriuretic Peptide 43 0-100 pg/mL Current Medications Medications (Trade) Dose Ordered Sig/Breanna Route PRN Reason Start Time Stop Time Status Last Admin Dose Admin Acetaminophen (TYLenol 325MG TAB) 650 mg Q4H PRN PO MILD PAIN (1-3) 09/06/24 02:00 10/06/24 01:59 09/06/24 02:20 650 MG Acetaminophen (TYLenol 325MG TAB) 650 mg Q6H PRN PO TEMPERATURE GREATER THAN 101.5 09/06/24 02:00 10/06/24 01:59 Albuterol Sulfate (Proventil 0.042% 1.25mg/ 3ml) 1.25 [id number] PRN IH COUGH 09/06/24 02:30 10/06/24 02:29 Famotidine (Pepcid 20mg Vial) 20 mg BID IV 09/06/24 09:00 10/06/24 08:59 09/06/24 08:26 20 MG Magnesium Sulfate 50 ml @ 0 mls/hr PROTOCOL PRN IV HYPOMAGNESMIA 09/06/24 06:00 10/06/24 05:59 09/06/24 06:07 25 MLS/HR Nitroglycerin (Nitrostat) 0.4 mg PROTOCOL PRN SL CHEST PAIN 09/06/24 02:00 10/06/24 01:59 Ondansetron HCl (zoFRAN 4MG INJ) 4 mg Q6H PRN IV NAUSEA/VOMITING 09/06/24 02:00 10/06/24 01:59 Potassium Chloride 100 ml @ 50 mls/hr AD PRN IV POTASSIUM PROTOCOL 09/06/24 06:00 09/06/24 05:52 DC Potassium Chloride 100 ml @ 100 mls/hr AD PRN IV POTASSIUM PROTOCOL 09/06/24 06:00 10/06/24 05:59 Potassium Chloride (K-Dur/Klor-Con 20meq) 20 meq AD PRN PO POTASSIUM PROTOCOL 09/06/24 06:00 10/06/24 05:59 09/06/24 06:08 20 MEQ Potassium Chloride (KCl 10% Elixir 20meq/15ml) 20 meq AD PRN PO POTASSIUM PROTOCOL 09/06/24 06:00 10/06/24 05:59 Sodium Chloride 1,000 ml @ 75 mls/hr [id number] IV 09/06/24 02:30 10/06/24 02:29 09/06/24 03:34 75 MLS/HR Tramadol HCl (UltRAM) 50 mg Q6H PRN PO MODERATE PAIN (4-6) 09/06/24 02:30 09/11/24 02:29 DIAGNOSTICS / RADIOLOGY: [ ] ASSESSMENT: Chest pain resolved, ACS ruled out Dehydration, POA Hypokalemia, POA Leukopenia secondary to HIV POA Thrombocytopenia secondary to HIV POA Hyperbilirubinemia POA Severe Protein calorie malnutrition POA HIV POA PLAN: Continue admission in the medical telemetry unit Continue heart healthy diet Continue IV fluid hydration with NS at 75 mL/hr In reference to electrolyte derangement: Monitoring replace electrolytes per hospital protocol May use oxygen supplementation to keep saturation above 92% Albuterol neb treatment q.6 hours p.r.n. for shortness of breaths and cough Home medications reviewed and reconciled Following Hematology's recommendations Dietitian consulted in reference to severe protein calorie malnutrition Trend troponins Monitor a.m. labs PRN Treatment - Add when necessary meds for nausea, vomiting, pain, constipation, insomnia. DVT/GI prophylaxis- Continue SCDs and famotidine at current doses. Full CODE STATUS This document was generated in part using voice recognition software, occasional wrong word or sound alike substitutions may have occurred due to the inherent limitations of voice recognition software. Read the chart carefully and recognize using context, where the substitutions have occurred. Although every effort was made to edit the content, photographer helper and typing errors may occur MELYSSA FERREIRA AVIATION TECHNICIAN AIRCRAFT Sep 06, 2024 08:53
[2024-09-06] MEDS ORDERED: MAGNESIUM 2GM PREMIX 50ML 50 ML IV PRN (09:00)
[2024-09-06] MEDS: DOLUTEGRAVIR SODIUM 50 MG PO SCH (09:00)
[2024-09-06] MEDS ORDERED: PoTASSium chloRIDE 20MEQ ER 20 MEQ ERTAB PO PRN (09:00)
--- NOTE | 2024-09-06 09:40 | NUR ---
NOTIFIED CYNTHIA TO CALL DR. BOSWELL FOR HEMATOLOGU CONSULT
[2024-09-06 11:20] LABS: APPEARANCE,URINE CLOUDY (CLEAR); BILIRUBIN,URINE NEGATIVE (NEGATIVE); COLOR,URINE YELLOW (YELLOW); GLUCOSE, URINE (UA) NEGATIVE (NEGATIVE); KETONES,URINE NEGATIVE (NEGATIVE); LEUKOCYTE ESTERASE ,URINE 500 Leu/uL (NEGATIVE); NITRATE,URINE NEGATIVE (NEGATIVE); OCCULT BLOOD,URINE NEGATIVE (NEGATIVE); PH,URINE 5.5 (5.0-8.0); PROTEIN,URINE NEGATIVE (NEGATIVE); UROBILINOGEN,URINE 12 mg/dL (0.2-1.0)
[2024-09-06 11:26] LABS: ADD UA MICROSCOPIC YES
[2024-09-06 11:32] LABS: BACTERIA,URINE FEW /HPF (None Seen); MUCUS,URINE RARE LPF (None Seen); SQUAMOUS EPITHELIAL CELL,UR MOD /HPF (0-2); WBC,URINE TNTC /HPF (0-1)
--- NOTE | 2024-09-06 13:40 | CONS ---
CONSULT NOTE: This is a 48-year-old female Chinese-speaking with past medical history of HIV who presents to the ED for complaints of shortness of breaths, chest pain and chest congestion and as per patient she was told by her PCP before if ever she has this symptoms to come to the ED for evaluation. Patient reports that she had lab result and her platelet count was low. Patient states she was seen by her PCP Nadia Lawson three weeks ago. Patient also reports she has fever and abdominal pain. Patient also states she does not have appetite for the past three days. Patient states he has not been seen by a line department supervisor . Patient reports she received platelet transfusion before. Seen and examined patient in the ER, awake, alert, coherent and appears uncomfortable. Patient denies nausea, vomiting and diarrhea. Patient complaining of rectal bleeding sometimes because she have constipation. Patient was found to have pancytopenia. ROS CONSTITUTIONAL: Complaints of fever Denies chills, or night sweats. No unintentional weight loss reported. NEUROLOGICAL: Denies headache, amaurosis fugax, motor weakness, sensory deficit, vertigo/spinning sensation, gait abnormalities, or tremors. ENT: No hearing loss, otalgia, otorrhea, rhinitis, rhinorrhea, hoarseness, or sore throat. CARDIOVASCULAR: Complain of chest pain Denies dyspnea on exertion, orthopnea, paroxysmal nocturnal dyspnea, palpitations, life-threatening arrhythmias, claudication. PULMONARY: Complaints of shortness of breaths and productive cough Denies hemoptysis, pleuritic chest pain. SLEEP: Denies morning headaches, daytime somnolence or napping. Denies difficulty falling asleep, staying asleep, waking from sleep. Denies knowledge of snoring. GASTROINTESTINAL: Complains of abdominal pain Denies any type of dysphagia to either liquids or solids. Denies nausea, vomiting, pyrosis, early satiety, diarrhea, constipation, or changes in stool consistency or caliber. Denies coffee-ground emesis, hematemesis, hematochezia, or melanotic stools. GENITOURINARY: Denies frequency, urgency, nocturia, hematuria or incontinence (Storage/Irritative symptoms.) Low urinary stream, straining to void, urinary intermittency or hesitancy, splitting of the voiding stream, terminal dribbling. ENDOCRINOLOGIC: Denies polyuria, polydipsia, polyphagia or heat/cold intolerances. HEMATOLOGIC: Denies thrombophilia/previous clots, or coagulopathy/bleeding disorders. ONCOLOGIC: Denies personal history of malignancy. DERMATOLOGIC: Denies rashes or pruritus. PSYCHIATRIC: Denies any suicidal or homicidal ideation. Denies hallucinations. PAST MEDICAL HISTORY: [HIV ] PAST SURGICAL HISTORY: [ x2 ] PAST SOCIAL HISTORY: [ Patient denies alcohol tobacco and recreational drug use ] FAMILY HISTORY: [ Father diabetes ] Coded Allergies: No Known Drug Allergies (Unverified Allergy, Unknown, 09/05/24) Uncoded Allergies: NKA (Allergy, Unknown, 10/06/18) PHYSICAL EXAM GENERAL APPEARANCE: The patient is awake, alert, and oriented, in no acute cardiopulmonary distress. NEUROLOGICAL: Cranial nerves II-XII grossly intact. Motor is 5/5 in bilateral upper and lower extremities proximal to distal. No sensory deficits. HEENT: Face is symmetric. Pupils are equal and reactive. Extraocular movements are intact. NECK: Supple. No JVD. No thyromegaly. No submental, submandibular, pre- /postauricular, occipital or supraclavicular lymphadenopathy. CHEST: Normal chest expansion. No Telemetry. LUNGS: Absence of any rales, rhonchi or any wheezing. CARDIOVASCULAR: Regular. S1 and S2 normal. No appreciable rubs, murmurs or gallops. ABDOMEN: Diffuse abdominal tenderness on palpation. Soft and nondistended. There is no rebound, voluntary guarding, or rigidity. : Deferred. No Fernandez. EXTREMITIES: Non-edematous and not cyanotic. No clubbing. Good capillary refill. SKIN: No skin breakdown. Assessment 1. Neutropenia 2. Thrombocytopenia 3. Anemia 4. History of HIV Chest pain with congestion. Plan 1. Peripheral blood smear showed red blood cells to be normocytic normochromic. There was no fragment cell or schistocyte. There is no teardrop cell. There is no rouleaux phenomena. There is no pelger-Huet cell. White blood cell with no blasts. Platelet decreased in number. There is no clumping of the platelet. 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 2. There was hypersegmented neutrophils. This patient to be started on folic acid 1 mg p.o. daily and vitamin B12 1000 mcg p.o. daily. 3. No need for blood product transfusion 4. No need for bone marrow biopsy 5. This patient need to be treated optimally for her HIV's and her count could be improved. 5. Continue care as per primary LAB RESULTS 09/06/24 10:47: Urine Color YELLOW, Urine Appearance CLOUDYH, Urine pH 5.5, Urine Specific [place] 1.025, Urine Protein NEGATIVE, Urine Glucose (UA) NEGATIVE, Urine Ketones NEGATIVE, Urine Occult Blood NEGATIVE, Urine Nitrate NEGATIVE, Urine Bilirubin NEGATIVE, Urine Urobilinogen 12H, Urine Leukocyte Esterase 500H, Urine RBC 2-5H, Urine WBC TNTCH, Urine Squamous Epithelial Cells MOD, Urine Bacteria FEW, Urine Hyaline Casts 2-5H 09/06/24 09:44: Troponin I High Sensitivity 6 09/06/24 02:21: White Blood Count 2.9L, Red Blood Count 3.75L, Hemoglobin 11.8L, Hematocrit 34.6L, Mean Corpuscular Volume 92.3, Mean Corpuscular Hemoglobin 31.5, Mean Corpuscular Hemoglobin Concent 34.1, Red Cell Distribution Width 15.7H, Platelet Count 52L, Mean Platelet Volume 10.8H, Immature Granulocyte % (Auto) 0.3, Ne utrophils (%) (Auto) 64.6, Lymphocytes (%) (Auto) 21.7, Monocytes (%) (Auto) 9.3, Eosinophils (%) (Auto) 3.8, Basophils (%) (Auto) 0.3, Neutrophils # (Auto) 1.9, Lymphocytes # (Auto) 0.6L, Monocytes # (Auto) 0.3, Eosinophils # (Auto) 0.11, Basophils # (Auto) 0.01, Absolute Immature Granulocyte (auto 0.01, Segmented Neutrophils % 74H, Lymphocytes % (Manual) 19L, Monocytes % (Manual) 7, Nucleated Red Blood Cells 0.0, Differential Comment MANUAL DIFFERENTIAL, White Cell Morphology Comment SMUDGE CELLS 1+, Platelet Morphology Comment DECREASED, Red Blood Cell Morphology See comments, Erythrocyte Sedimentation Rate 53H, Sodium Level 141, Potassium Level 3.3L, Chloride Level 109, Carbon Dioxide Level 26, Blood Urea Nitrogen 9, Creatinine 0.7, Glomerular Filtration Rate Calc 105, Random Glucose 103, Total Calcium 8.0L, Magnesium Level 1.80, Total Bilirubin 1.0, Aspartate Amino Transf (AST/SGOT) 40H, Alanine Aminotransferase (ALT/SGPT) 22, Alkaline Phosphatase 154H, Total Protein 7.5, Albumin 2.6L, Procalcitonin < 0.05L 09/05/24 19:23: Total Creatine Kinase 111#, B-Type Natriuretic Peptide 43 Laboratory Tests Test 09/05/24 19:23 09/06/24 02:21 09/06/24 09:44 09/06/24 10:47 White Blood Count 3.8 K/uL (4.8-10.8) L 2.9 K/uL (4.8-10.8) L Red Blood Count 4.03 MIL/uL (4.00-5.50) 3.75 MIL/uL (4.00-5.50) L Hemoglobin 12.8 g/dL (12.0-16.0) 11.8 g/dL (12.0-16.0) L Hematocrit 37.7 % (36-48) 34.6 % (36-48) L Mean Corpuscular Volume 93.5 fL (79-99) 92.3 fL (79-99) Mean Corpuscular Hemoglobin 31.8 pg (27.0-33.0) 31.5 pg (27.0-33.0) Mean Corpuscular Hemoglobin Concent 34.0 g/dL (32.0-36.0) 34.1 g/dL (32.0-36.0) Red Cell Distribution Width 15.6 % (11.0-15.5) H 15.7 % (11.0-15.5) H Platelet Count 69 K/uL (130-400) L 52 K/uL (130-400) L Mean Platelet Volume 9.9 fL (7.5-10.5) 10.8 fL (7.5-10.5) H Nucleated Red Blood Cells 0.0 % (0.0-0.19) 0.0 % (0.0-0.19) Platelet Morphology Comment See comments DECREASED Sodium Level 139 mmol/L (136-145) 141 mmol/L (136-145) Potassium Level 3.6 mmol/L (3.5-5.1) 3.3 mmol/L (3.5-5.1) L Chloride Level 105 mmol/L (101-111) 109 mmol/L (101-111) Carbon Dioxide Level 31 mmol/L (21-32) 26 mmol/L (21-32) Blood Urea Nitrogen 9 mg/dL (7-18) 9 mg/dL (7-18) Creatinine 0.8 mg/dL (0.5-1.0) 0.7 mg/dL (0.5-1.0) Glomerular Filtration Rate Calc 90 mL/min (>90) 105 mL/min (>90) Random Glucose 94 mg/dL (70-105) 103 mg/dL (70-105) Total Calcium 8.7 mg/dL (8.5-10.1) 8.0 mg/dL (8.5-10.1) L Total Bilirubin 1.2 mg/dL (0.2-1.0) H 1.0 mg/dL (0.2-1.0) Aspartate Amino Transf (AST/SGOT) 47 U/L (10-37) H 40 U/L (10-37) H Alanine Aminotransferase (ALT/SGPT) 24 U/L (12-78) 22 U/L (12-78) Alkaline Phosphatase 145 U/L (50-136) H 154 U/L (50-136) H Total Creatine Kinase 111 U/L (21-232) # Troponin I High Sensitivity 5 ng/L (4-50) 6 ng/L (4-50) 6 ng/L (4-50) B-Type Natriuretic Peptide 43 pg/mL (0-100) Total Protein 8.3 g/dL (6.0-8.3) 7.5 g/dL (6.0-8.3) Albumin 2.8 g/dL (3.5-5.0) L 2.6 g/dL (3.5-5.0) L Immature Granulocyte % (Auto) 0.3 % (0-1) Neutrophils (%) (Auto) 64.6 % (40.0-77.0) Lymphocytes (%) (Auto) 21.7 % (21.0-51.0) Monocytes (%) (Auto) 9.3 % (3.0-13.0) Eosinophils (%) (Auto) 3.8 % (0.0-8.0) Basophils (%) (Auto) 0.3 % (0.0-5.0) Neutrophils # (Auto) 1.9 K/uL (1.8-7.7) Lymphocytes # (Auto) 0.6 K/uL (1.0-4.8) L Monocytes # (Auto) 0.3 K/uL (0.1-1.0) Eosinophils # (Auto) 0.11 K/uL (0.00-0.70) Basophils # (Auto) 0.01 K/uL (0.00-0.20) Absolute Immature Granulocyte (auto 0.01 K/uL (0-1) Segmented Neutrophils % 74 % (40-70) H Lymphocytes % (Manual) 19 % (22-44) L Monocytes % (Manual) 7 % (2-9) Differential Comment MANUAL DIFFERENTIAL White Cell Morphology Comment SMUDGE CELLS 1+ Red Blood Cell Morphology See comments Erythrocyte Sedimentation Rate 53 MM/HR (0-30) H Magnesium Level 1.80 mg/dL (1.80-2.40) Procalcitonin < 0.05 ng/mL (0.05-0.5) L Urine Color YELLOW (YELLOW) Urine Appearance CLOUDY (CLEAR) H Urine pH 5.5 (5.0-8.0) Urine Specific [place] 1.025 (1.001-1.031) Urine Protein NEGATIVE mg/dL (NEGATIVE) Urine Glucose (UA) NEGATIVE mg/dL (NEGATIVE) Urine Ketones NEGATIVE mg/dL (NEGATIVE) Urine Occult Blood NEGATIVE (NEGATIVE) Urine Nitrate NEGATIVE (NEGATIVE) Urine Bilirubin NEGATIVE mg/dL (NEGATIVE) Urine Urobilinogen 12 mg/dL (0.2-1.0) H Urine Leukocyte Esterase 500 [place]/uL (NEGATIVE) H Urine RBC 2-5 /HPF (0-1) H Urine WBC TNTC /HPF (0-1) H Urine Squamous Epithelial Cells MOD /HPF (0-2) Urine Bacteria FEW /HPF (None Seen) Urine Hyaline Casts 2-5 /LPF (0-1 /LPF) H EMI BOSWELL MD Sep 06, 2024 13:40
[2024-09-06] MEDS: [UNRECOGNIZED DRUG - OTHER] PO SCH (21:00)
[2024-09-06 23:35] VITALS: O2SAT 99
[2024-09-07] VITALS (11 sets, daily range): BP systolic 97–115; BP diastolic 42–76; PULSE 65–82; RESP 16–18; TEMP 97.9–99.1; O2SAT 96–99
[2024-09-07 04:57] LABS: BASOPHILS # (AUTO) 0.01 K/uL (0.00-0.20); BASOPHILS % (AUTO) 0.3 % (0.0-5.0); EOSINOPHILS # (AUTO) 0.08 K/uL (0.00-0.70); EOSINOPHILS % (AUTO) 2.7 % (0.0-8.0); HEMATOCRIT 33.3 % (36-48); IMMATURE GRANULOCYTE ABSOLUTE 0.01 K/uL (0-1); LYMPHOCYTES # (AUTO) 0.7 K/uL (1.0-4.8); LYMPHOCYTES % (AUTO) 22.3 % (21.0-51.0); MEAN CORPUSCULAR HEMOGLOBIN 31.8 pg (27.0-33.0); MEAN CORPUSCULAR HGB CONC 34.8 g/dL (32.0-36.0); MEAN CORPUSCULAR VOLUME 91.2 fL (79-99); MONOCYTES # (AUTO) 0.3 K/uL (0.1-1.0); MONOCYTES % (AUTO) 8.4 % (3.0-13.0); PLATELET COUNT (AUTO) 45 K/uL (130-400); RED BLOOD CELL COUNT(AUTO) 3.65 MIL/uL (4.00-5.50); RED CELL DISTRIBUTION WIDTH 15.4 % (11.0-15.5)
[2024-09-07 05:13] LABS: EOSINOPHILS % (MANUAL) 2 % (1-6); LYMPHOCYTES % (MANUAL) 18 % (22-44); MAN.DIFF COMMENT-IMPRESSION MANUAL DIFFERENTIAL; MONOCYTES % (MANUAL) 5 % (2-9); SEGMENTED NEUTROPHILS % 75 % (40-70); TOTAL CELLS COUNTED 100
[2024-09-07 05:14] LABS: PLATELET MORPHOLOGY COMMENT MARKED DECREASE; WBC MORPHOLOGY SMUDGE CELLS 1+
[2024-09-07 05:15] LABS: ALBUMIN 2.4 g/dL (3.5-5.0); BILIRUBIN,TOTAL 1.3 mg/dL (0.2-1.0); CREATININE 0.7 mg/dL (0.5-1.0); POTASSIUM 3.7 mmol/L (3.5-5.1); TOTAL PROTEIN, SERUM 7.2 g/dL (6.0-8.3)
[2024-09-07] MEDS: ALBUTEROL 0.042% 1.25MG/3ML IH PRN (07:31)
--- NOTE | 2024-09-07 08:50 | DS ---
Discharge Summary Hospital Course Summary: Petechial female with a past medical history of HIV and hypotension admitted for chest pain, electrolyte derangement, leukopenia, thrombocytopenia, hyperbilirubinemia and severe protein calorie malnutrition. Benefits Specialist Dr. Pop was consulted secondary to leukopenia, thrombocytopenia and HIV diagnosis. Serial troponins ordered to rule out ACS. Chest x-ray showed clear lungs. 09/06/2024: Today at bedside evaluation patient is alert and oriented x3. Patient reports still feeling weak, she was having some appetite and we will attempt to eat her breakfast. Reports no nausea. Overnight there is no reported incidences. Her latest vital signs are stable, afebrile, blood pressu re 101/59, satting 97% on room air. CBC this morning is 2.9, H&H 11.8/34.6, platelets 52, ESR 53, potassium is 3.3, magnesium 1.8, alkaline phosphatase 154, series troponins are negative, albumin 2.6. Chest x-ray shows no acute findings. We will continue with IV fluids with NS at 75 mL/hr. Home medications reviewed and restarted. Condition remains guarded. We will follow up with billboard erector helper recommendations. 09/07/2024 today at bedside evaluation patient was found alert and oriented x3. No incidences reported overnight. Vitals are stable. CBC and CMP were stable. Troponins are negative. Adjusted not recommend any blood product transfusion, no need for bone marrow biopsy, recommends patient follow up with her HIV specialist for optimal HIV admit. Urine culture is pending. From medical standpoint patient is cleared for discharge. Advised to follow up with PCP in 2-3 days for continued evaluation and repeat CBC, BMP and urinalysis. Follow up with your HIV specialist in one week for continued evaluation. Continue cefdinir 300 mg p.o. b.i.d. x5 days. Forms Designer(s): Oncologist/billboard erector helper Dr. Pop Assessment/Plan: ASSESSMENT: Chest pain secondary to costochondritis is resolved, ACS ruled out, POA Dehydration, POA improved Hypokalemia, POA improved Leukopenia secondary to HIV POA stable Thrombocytopenia secondary to HIV POA Hyperbilirubinemia POA Severe Protein calorie malnutrition POA HIV POA PLAN: Okay to discharge home Continue heart healthy diet Discontinued IV fluids In reference to electrolyte derangement: Monitoring replace electrolytes per hospital protocol May use oxygen supplementation to keep saturation above 92% Albuterol neb treatment q.6 hours p.r.n. for shortness of breaths and cough Home medications reviewed and reconciled Following Hematology's recommendations Dietitian consulted in reference to severe protein calorie malnutrition Trend troponins Monitor a.m. labs PRN Treatment - Add when necessary meds for nausea, vomiting, pain, constipation, insomnia. DVT/GI prophylaxis- Continue SCDs and famotidine at current doses. Full CODE STATUS Disposition: Home This document was generated in part using voice recognition software, occasional wrong word or sound alike substitutions may have occurred due to the inherent limitations of voice recognition software. Read the chart carefully and recognize using context, where the substitutions have occurred. Although every effort was made to edit the content, electrician station assistant and typing errors may occur Discharge Instructions: Okay to discharge home. Follow up with PCP in 2-3 days for continued evaluation including repeat CBC, BMP and urinalysis. Follow up with HIV specialist in one week for continued evaluation and treatment. Continue cefdinir 300 mg p.o. b.i.d. x5 days. This case was discussed with Dr. Shore and above plan was formulated Home Medications: Active Scripts Cefdinir (Cefdinir) 300 Mg Capsule, 1 CAP PO BID for 5 Days, #10 CAP 0 Refills Prov:MELYSSA FERREIRA 09/07/24 Reported Medications Dolutegravir Sodium (Tivicay) 50 Mg Tablet, 1 TAB PO DAILY for 30 Days, #30 TAB 0 Refills 09/06/24 Darunavir/Cob/Emtri/Tenof Alaf (Symtuza [id number] mg Tab) 1 Each Tablet, 1 EACH PO HS, TAB 11/09/19 Discontinued Scripts Cefuroxime Axetil (Cefuroxime) 500 Mg Tablet, 500 MG PO BID, #20 TAB Prov:MARIJA CARDONA MD 11/16/22 Ondansetron HCl (Ondansetron HCl) 4 Mg Tablet, 4 MG PO TIDP PRN for VOMITING, #20 TAB Prov:MARIJA CARDONA MD 11/16/22 Ibuprofen (Motrin/Advil) 800 Mg Tab, 800 MG PO TID, #30 TAB Prov:MARIJA CARDONA MD 11/16/22 Time spent arranging discharge: 31-60 minutes MELYSSA FERREIRAP Sep 07, 2024 08:50
[2024-09-07] MEDS ORDERED: CEFD300C3 PO (08:52)
[2024-09-07] MEDS: cefTRIAXone 1G VIAL IVPB SCH (08:59)
--- NOTE | 2024-09-07 15:00 | NUR ---
Nutrition consult per PCM eval Reviewed labs, notes, and medications. HIV POA, poor appetite before admission for 3 days, on HH, IV fluid ,Ca 7.9(L), elevated bilirubin 1.3, no CD4 count per chart review. Wt via standing scale, no wounds, last BM 09/06/24, well nourished, no edema, inadequate nutrition per nursing. Communicated in [place]ian during visit. Pt reported NKFA, 50%PO intake, last BM 09/06/24, sees PCP every three months, UBW 178 lbs 3 months ago, agreeable to ensure MAX TID w/ trays. Pt with PCM, Supplement thiamin 100 mg/day for 5-7 days + MVI QD for at least 10 days. Recommendations -Provide neutropenic diet + HH+ low fat + ensure MAX tid w/ trays -Monitor PO intake -Encourage PO intake as able -If poor PO intake continues consider appetite stimulant -Monitor BM -If no BM >3 days consider stool softener -Monitor electrolytes -Replenish electrolytes per protocol -Monitor wts -Reweigh as able -Order Vit D, vit b-12 labs to rule out deficiencies -Provide b-complex QD -Recommend Pt to follow up with PCP -Monitor goals of care RD to follow + available for consult per protocol Addendum: 09/07/24 at [address] Amended: Links added.
[2024-09-07 16:04] LABS: HEMOGLOBIN A1C 4.6 % (4.0-6.0)
[2024-09-07 16:15] LABS: CHOLESTEROL 110 mg/dL (<200); HDL CHOLESTEROL 42 mg/dL (35-85); LDL DIRECT 68 mg/dL (0-99); TRIGLYCERIDES 45 mg/dL (30-200)
--- NOTE | 2024-09-07 18:15 | NUR ---
DC NOTE DC INSTRUCTIONS AND FOLLOW UP APPOINTMENT GIVEN ALONG WITH E-SCRIPT SENT TO PT'S LOCAL PHARMACY. PIV REMOVED,CATHETER INTACT, DENIES ANY PAIN OR DISCOMFORT. PT WAS DC LATE DUE TO NO TRANSPORTATION UNTIL SON'S GETS OUT OF WORK AFTER 1700. PT IS WHEELED DOWNSTAIRS WITH POTATO SORTER INTO VIA PRIVATE CAR. NO FURTHER COMMENTS OR CONCERNS AT THIS TIME.
== END 2024-09-07 18:15 | disposition home or self-care (01) | DRG 205 ==
LOC: EDH 18:42 → EDHIP 18:43 → 3CH 09-06 22:48
PROVIDERS: ADMIT Internal Medicine; ATTEND Internal Medicine
DX: M94.0 Chondrocostal junction syndrome [Tietze] (principal); E43 Unspecified severe protein-calorie malnutrition; D70.9 Neutropenia, unspecified; Z21 Asymptomatic human immunodeficiency virus [HIV] infection status; I51.7 Cardiomegaly; E80.6 Other disorders of bilirubin metabolism; D69.59 Other secondary thrombocytopenia; Z68.28 Body mass index [BMI] 28.0-28.9, adult; E86.0 Dehydration; E87.6 Hypokalemia; Z83.3 Family history of diabetes mellitus; Z82.49 Family history of ischemic heart disease and other diseases of the circulatory system
CPT/HCPCS: 36415; 71045; 80053; 80061; 81001; 82306; 82550; 82607; 83036; 83735; 83880; 84145; 84484; 85025; 85027; 85651; 86850; 86900; 86901; 87086; 87186; 93005; 94640; 94664; G0378; J0696; J3475; J3490